=== PATIENT | female | born 1955 | race Caucasian/White ===

== ENCOUNTER 2018-08-25 12:04 | Emergency (ER) | payer OTHER ==
[~2018-08-25] VITALS: Ht 165.1 cm; Wt 79.6 kg
[~2018-08-25 12:04] MED LIST: 24HOUR ALLERGY10 MG; BUSPIRONE HCL10 MG PO; COZAAR 25 MG TA25 M1 PO; CRESTOR40 MG PO; CYMBALTA30 MG PO; DICLOFENAC SODI25 MG PO; ISOSORBIDE MONO30 M1 PO; LANTUS100 UNIT/M SUBQ; LATUDA120 MG PO; LOPRESSOR25 PO; NASACORT10.8 ML NASAL; NEURONTIN 400400 M1 PO; NITROGLYCERIN0.4 MG SUBLING; NYAMYC15 GM TOP; OMEGA-31000 M1 PO; OXYBUTYNIN 5 MG5 M2 PO; OXYBUTYNIN ER 55 M1 PO; PLAVIX 75 MG TA75 M1 PO; TOPAMAX 100 MG100 MG PO; TRAZODONE HCL100 MG PO; TYLENOL325 MG PO
[2018-08-25 12:29] LABS: ABSOLUTE NEUTROPHILS 3.9 thou/uL (1.4-8.2); BASOPHILS 0.6 % (0.0-2.0); HEMATOCRIT 35.3 % (37.0-47.0); HEMOGLOBIN 12.1 gm/dL (12.0-15.0); LYMPHOCYTES 49.9 % (24.0-44.0); MCH 30.6 pg (26.0-34.0); MCHC 34.3 g/dL (28.0-37.0); MCV 89.2 fL (80.0-100.0); MONOCYTES 4.2 % (1.0-8.0); PLATELET COUNT 217 thou/uL (150-400); POLYS 44.3 % (36.0-66.0); RBC 3.96 mil/uL (4.20-5.00); RDW 14.1 % (10.5-14.5); WBC 8.8 thou/uL (4.0-11.0)
[2018-08-25 12:38] LABS: ANION GAP 10 mmol/L (7-16); BUN 17 mg/dL (7-18); CALCIUM 8.9 mg/dL (8.5-10.1); CHLORIDE 107 mmol/L (98-107); CO2 24 mmol/L (21-32); CREATININE 0.8 mg/dL (0.6-1.0); GLUCOSE 151 mg/dL (74-106); POTASSIUM 3.7 mmol/L (3.5-5.1); SODIUM 141 mmol/L (136-145)
[2018-08-25 12:47] LABS: TROPONIN-I <0.06 ng/mL (<0.06)
[2018-08-25 14:56] VITALS: BP 124/68
--- NOTE | 2018-08-26 11:58 | EKG ---
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1955 Requested By: Matthew Arellano Order Number: [id number] MD: Wade Hendrickson Measurements Intervals [place] Rate: 77 P: 20 SC: 167 QRS: -7 QRSD: 134 T: 101 QT: 429 QTc: 486 Interpretive Statements Sinus rhythm Atrial premature complex Left bundle branch block Compared to ECG 04/16/2018 11:15:00 Atrial premature complex(es) now present Electronically Signed On 08-26-2018 11:58:22 COAT HANGER SHAPER MACHINE OPERATOR by Wade Hendrickson [email or web address] <ELECTRONICALLY SIGNED> By: Wade Hendrickson MD, [facility] 08/26/18 1158 1203 1203 Wade Hendrickson MD, FAC /EPI
--- NOTE | 2018-08-26 12:00 | EKG ---
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 Paid: salo : 1955 Requested By: Matthew Arellano Order Number: [id number] MD: Wade Hendrickson Measurements Intervals [place] Rate: 69 P: 16 GA: 185 QRS: -12 QRSD: 143 T: 120 QT: 456 QTc: 489 Interpretive Statements Sinus rhythm Left bundle branch block Compared to ECG 04/16/2018 11:15:00 No significant changes Electronically Signed On 08-26-2018 12:00:00 SECURITY INTELLIGENCE ANALYST by Wade Hendrickson [email or web address] <ELECTRONICALLY SIGNED> By: Wade Hendrickson MD, [facility] 08/26/18 1200 1419 18 Wade Hendrickson MD, FACC /EPI
== END 2018-08-25 14:56 ==
LOC: ER 12:04
PROVIDERS: Emergency Medicine
DX: R07.89 Other chest pain (principal); I25.10 Atherosclerotic heart disease of native coronary artery without angina pectoris; I25.2 Old myocardial infarction; Z88.1 Allergy status to other antibiotic agents; Z88.6 Allergy status to analgesic agent; Z88.8 Allergy status to other drugs, medicaments and biological substances

== ENCOUNTER 2018-10-27 19:46 | Emergency (ER) | payer OTHER ==
[~2018-10-27] VITALS: Ht 165.1 cm; Wt 73.0 kg
[2018-10-27 21:21] LABS: ABSOLUTE NEUTROPHILS 3.7 thou/uL (1.4-8.2); BASOPHILS 0.5 % (0.0-2.0); EOSINOPHILS 5.3 % (0.0-3.0); HEMATOCRIT 33.5 % (37.0-47.0); HEMOGLOBIN 11.3 gm/dL (12.0-15.0); LYMPHOCYTES 46.2 % (24.0-44.0); MCH 31.2 pg (26.0-34.0); MCHC 33.6 g/dL (28.0-37.0); MCV 92.9 fL (80.0-100.0); MONOCYTES 5.9 % (1.0-8.0); PLATELET COUNT 247 thou/uL (150-400); POLYS 42.1 % (36.0-66.0); RBC 3.61 mil/uL (4.20-5.00); RDW 14.1 % (10.5-14.5); WBC 8.9 thou/uL (4.0-11.0)
[2018-10-27 21:28] LABS: ANION GAP 8 mmol/L (7-16); BUN 21 mg/dL (7-18); CALCIUM 9.5 mg/dL (8.5-10.1); CHLORIDE 107 mmol/L (98-107); CO2 24 mmol/L (21-32); GLUCOSE 164 mg/dL (74-106); POTASSIUM 3.8 mmol/L (3.5-5.1); SODIUM 139 mmol/L (136-145)
[2018-10-27 21:37] LABS: TROPONIN-I <0.06 ng/mL (<0.06)
[2018-10-27 22:12] LABS: URINE BILIRUBIN NEGATIVE (Negative); URINE BLOOD NEGATIVE (Negative); URINE CLARITY CLEAR; URINE COLOR YELLOW; URINE GLUCOSE-RANDOM* NEGATIVE (Negative); URINE KETONES TRACE (Negative); URINE LEUKOCYTES-REFLEX NEGATIVE (Negative); URINE NITRITE-REFLEX NEGATIVE (Negative); URINE PROTEIN (DIPSTICK) NEGATIVE (Negative); URINE SPECIFIC GRAVITY 1.025 (1.005-1.035); URINE UROBILINOGEN 0.2 E.U./dl (0.2-1.0)
[2018-10-28 00:11] VITALS: BP 128/64
--- NOTE | 2018-10-28 10:52 | EKG ---
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 : 1955 Requested By: Evelyn Coy Order Number: [id number] MD: Aroldo Hudson Measurements Intervals [place] Rate: 71 P: 29 [place]: 173 QRS: 6 QRSD: 145 T: 80 QT: 440 QTc: 479 Interpretive Statements Sinus rhythm Left bundle branch block Compared to ECG 08/25/2018 14:19:06 No significant changes Electronically Signed On 10-28-2018 10:51:53 CDT by Aroldo Hudson [email or web address] ��������������������������������������������� <ELECTRONICALLY SIGNED> ���������������������������������������� By: Aroldo Hudson MD ��������������������������������������������� 10/28/18 1051 203 32 Aroldo Hudson MD /JEFF
== END 2018-10-28 00:11 | disposition home or self-care (01) ==
LOC: ER 19:46
PROVIDERS: Emergency Medicine
DX: G89.29 Other chronic pain (principal); R07.89 Other chest pain; I25.10 Atherosclerotic heart disease of native coronary artery without angina pectoris; F31.9 Bipolar disorder, unspecified; E11.9 Type 2 diabetes mellitus without complications; M19.90 Unspecified osteoarthritis, unspecified site; E78.5 Hyperlipidemia, unspecified; I10 Essential (primary) hypertension; Z88.1 Allergy status to other antibiotic agents; Z88.5 Allergy status to narcotic agent; Z88.8 Allergy status to other drugs, medicaments and biological substances; Z91.010 Allergy to peanuts; Z88.6 Allergy status to analgesic agent; W18.39XA Other fall on same level, initial encounter; Y93.89 Activity, other specified; Y92.89 Other specified places as the place of occurrence of the external cause; Y99.8 Other external cause status

== ENCOUNTER 2020-01-17 23:47 | Emergency (ER) | payer OTHER ==
[~2020-01-17] VITALS: Ht 165.1 cm; Wt 91.6 kg
[2020-01-18 08:00] VITALS: BP 100/51
== END 2020-01-18 08:00 ==
LOC: ER 23:47
DX: S82.142A Displaced bicondylar fracture of left tibia, initial encounter for closed fracture (principal); S22.39XA Fracture of one rib, unspecified side, initial encounter for closed fracture; S80.12XA Contusion of left lower leg, initial encounter; S00.12XA Contusion of left eyelid and periocular area, initial encounter; N20.0 Calculus of kidney; R59.0 Localized enlarged lymph nodes; E27.8 Other specified disorders of adrenal gland; M25.572 Pain in left ankle and joints of left foot; M54.6 Pain in thoracic spine; I25.10 Atherosclerotic heart disease of native coronary artery without angina pectoris; F31.9 Bipolar disorder, unspecified; E11.9 Type 2 diabetes mellitus without complications; M19.90 Unspecified osteoarthritis, unspecified site; E78.5 Hyperlipidemia, unspecified; I10 Essential (primary) hypertension; Z86.73 Personal history of transient ischemic attack (TIA), and cerebral infarction without residual deficits; Z79.899 Other long term (current) drug therapy; Z79.4 Long term (current) use of insulin; Z88.8 Allergy status to other drugs, medicaments and biological substances; Z88.1 Allergy status to other antibiotic agents; Z88.5 Allergy status to narcotic agent; Z91.010 Allergy to peanuts; Z88.2 Allergy status to sulfonamides; W01.0XXA Fall on same level from slipping, tripping and stumbling without subsequent striking against object, initial encounter; Y93.E8 Activity, other personal hygiene; Y92.89 Other specified places as the place of occurrence of the external cause; Y99.8 Other external cause status

== ENCOUNTER 2021-07-07 14:34 | Inpatient (IN) | payer OTHER ==
[~2021-07-07] VITALS: Ht 162.6 cm; Wt 84.1 kg
[2021-07-07 14:34] VITALS: BP 139/70
[2021-07-07 15:07] LABS: ABSOLUTE NEUTROPHILS 7.4 thou/uL (1.4-8.2); BASOPHILS 0.6 % (0.0-2.0); EOSINOPHILS 0.2 % (0.0-3.0); HEMATOCRIT 41.2 % (37.0-47.0); HEMOGLOBIN 13.1 gm/dL (12.0-15.0); LYMPHOCYTES 25.3 % (24.0-44.0); MCH 29.7 pg (26.0-34.0); MCHC 31.9 g/dL (28.0-37.0); MCV 93.1 fL (80.0-100.0); MONOCYTES 7.1 % (1.0-8.0); PLATELET COUNT 265 thou/uL (150-400); POLYS 66.8 % (36.0-66.0); RBC 4.43 mil/uL (4.20-5.00); WBC 11.1 thou/uL (4.0-11.0)
[2021-07-07 15:12] LABS: BE(vivo) -4.3 mmol/L (-2 to +3); HCO3 19.2 mmol/L (22.0-26.0); PCO2 30.8 mmHg (35.0-45.0); PO2 71.8 mmHg (80.0-100.0); pH 7.412 (7.360-7.450); sO2 94.8 % (92.0-98.0)
[2021-07-07 15:22] LABS: CALCIUM 8.8 mg/dL (8.5-10.1); CREATININE 1.2 mg/dL (0.6-1.0); POTASSIUM 4.1 mmol/L (3.5-5.1)
[2021-07-07 15:31] LABS: URINE BILIRUBIN NEGATIVE (Negative); URINE BLOOD NEGATIVE (Negative); URINE CLARITY CLEAR; URINE COLOR YELLOW; URINE GLUCOSE-RANDOM* 2+ (Negative); URINE KETONES TRACE (Negative); URINE LEUKOCYTES-REFLEX NEGATIVE (Negative); URINE NITRITE-REFLEX NEGATIVE (Negative); URINE PROTEIN (DIPSTICK) 1+ (Negative); URINE SPECIFIC GRAVITY >= 1.030 (1.005-1.035); URINE UROBILINOGEN 0.2 E.U./dl (0.2-1.0)
[2021-07-07 15:32] LABS: TOTAL BILIRUBIN 0.4 mg/dL (0.2-1.0); TOTAL PROTEIN 7.8 g/dL (6.4-8.2)
--- NOTE | 2021-07-07 15:43 | EKG ---
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: mparwayne : 1955 Requested By: Dawood Mares Order Number: [id number] MD: Contreras Lombardo Measurements Intervals [place] Rate: 102 P: 26 [place]: 145 QRS: -25 QRSD: 128 T: 132 QT: 382 QTc: 498 Interpretive Statements Sinus tachycardia Left bundle branch block Compared to ECG 10/27/2018 20:33:34 Sinus rhythm no longer present Electronically Signed On 07-07-2021 15:42:54 FILM RECORDIST by Contreras Lombardo [email or web address] <ELECTRONICALLY SIGNED> By: Contreras Lombardo MD, [facility] 07/07/21 1542 1452 1452 Contreras Lombardo MD, FACC /EPI
[2021-07-07 15:50] LABS: BACTERIA-REFLEX 1-9 Few /HPF (None Seen); CASTS None Seen /LPF (None Seen); CRYSTALS None Seen /LPF (None Seen); MUCUS >6 Heavy strn/LPF (None Seen); SQUAMOUS 0-3 Few /LPF (0-3); URINE RBC None Seen /HPF (NONE SEEN); URINE WBC-REFLEX 0-5 Rare /HPF (0-5)
[2021-07-07] MEDS ORDERED: BUSPIRONE HCL10 MG PO (17:46)
[2021-07-07] MEDS ORDERED: COLESTIPOL HCL1 G1 PO (17:47)
[2021-07-07] MEDS ORDERED: LATUDA80 MG PO (17:49)
[2021-07-07] MEDS ORDERED: ATIVAN1 M1 PO (17:50)
--- NOTE | 2021-07-07 19:16 | NUR ---
REPORT GIVEN TO ADI JARA AT THIS TIME
[2021-07-08 05:52] VITALS: BP 109/56
[2021-07-08 06:05] VITALS: BP 134/74
[2021-07-08 06:30] VITALS: BP 145/78
--- NOTE | 2021-07-08 07:11 | NUR ---
PT ADMITTED TO 3W FROM ED, ARRIVED TO ROOM 355 AT APPROXIMATELY 0625 ACCOMPANIED BY ED STAFF. VS STABLE ON ADMISSION, ON 2L O2. PALOMINO IN PLACE TO DD WITH CLEAR YELLOW URINE PRESENT. PT WITH EXTENSIVE NOTED ALLERGIES. PT WOULD NOT ANSWER ANY QUESTIONS FOR THIS RN, YES/NO QUESTIONS OR OTHERWISE. SHE DID NOT NOD OR SHAKE HER HEAD OR GIVE ANY INDICATION THAT SHE UNDERSTOOD. SINUS RHYTHM WITH BBB ON PHYSICIAN IN PRIVATE PRACTICE. REPORT GIVEN TO ONCOMING NURSE.
[2021-07-08 08:50] LABS: HEMATOCRIT 40.1 % (37.0-47.0); HEMOGLOBIN 12.7 gm/dL (12.0-15.0); MCH 29.4 pg (26.0-34.0); MCHC 31.7 g/dL (28.0-37.0); MCV 92.7 fL (80.0-100.0); RBC 4.33 mil/uL (4.20-5.00); RDW 13.9 % (10.5-14.5); WBC 15.4 thou/uL (4.0-11.0)
[2021-07-08 09:11] LABS: ALBUMIN 2.8 g/dL (3.4-5.0); ANION GAP 15 mmol/L (7-16); BUN 17 mg/dL (7-18); CALCIUM 8.5 mg/dL (8.5-10.1); CHLORIDE 111 mmol/L (98-107); CO2 20 mmol/L (21-32); CREATININE 1.1 mg/dL (0.6-1.0); DIRECT BILIRUBIN < 0.1 mg/dL (<0.1-0.2); GLUCOSE 351 mg/dL (74-106); POTASSIUM 3.6 mmol/L (3.5-5.1); SGOT 32 U/L (15-37); SGPT 29 U/L (30-65); SODIUM 146 mmol/L (136-145); TOTAL BILIRUBIN 0.2 mg/dL (0.2-1.0); TOTAL PROTEIN 7.6 g/dL (6.4-8.2)
--- NOTE | 2021-07-08 11:52 | NUR ---
[address] PEDRAZA ABOUT PT BLOOD GLUCOSE LEVEL, PT HAS HISTORY OF DM AND THERE IS NO ORDER FOR INSULIN IN YET.PAGE HIM AGAIN AT 0830, STATED HE WILL PUT ORDERS IN. NO ORDERS IN YET. 1100 DR[address] PEDRAZA ROUNDING REMINDED HIM PT RESTARTING PT HOME MEDS 9PSYCH) SINCE PT IS TEARFUL, RESTLESS AND ANXIOUS WELL HIGH BLOOD GLUOSE. STATED HE WILL PLACE ORDERS IN SOON. 0047 NO ORDERS IN YET
--- NOTE | 2021-07-08 12:11 | NUR ---
INITIAL ASSESSMENT: Received consult. MAEGAN reviewed chart and spoke with nursing and attending physician. Pt was admitted from [facility] due to COVID pneumonia. Pt placed in Enhanced Isolation. Pt had tested positive for COVID at the nursing facility. Pt is afebrile and on 2L of O2. Pt is on IV abx, IV steroids and Remdesivir. Pt with hx of bipolar and is a [facility] through [facility] Public Compression Molding Machine Setter's office. MAEGAN contacted Pawan Huang with the PA office to provide update. Pawan to send guardianship ppwk to MAEGAN to place on pt's chart. Per Pawan, pt has been fully vaccinated for COVID and was scheduled to have her booster shot tomorrow at the facility. Plan is for pt to return to [facility] when medically stable. MAEGAN faxed clinical info to [facility] for review. Left voice message for TORIN Sharp, to provide update. MAEGAN informed pt's nurse that all consents must be provided by the PA office. Contact info updated. MAEGAN is following to assist as needed with discharge planning.
[2021-07-08 15:42] VITALS: BP 132/75
--- NOTE | 2021-07-08 15:59 | NUR ---
CARE ASSUMED THIS AM, ADMISSION AND ASSESSMENT NCOMPLETED WITH CHART COPY FROM [facility]. PT IS SLOW TO RESPONSE, FOLLOW COMMANDS. PT DO NOT RESPOND WHEN SPOKEN, PER PT FACILITY, ITS COMMON WITH WITH NEW PEOPLE. PT IS INCONTINENT AND HAS BEEN HAVING DIARRHEA. PALOMINO CATHETER IN PLACE, PATENT AND SECURED. SKIN INTACT. FALL AND ENHANCED PRECAUTIONS IN PLACE. DENIES ANY NEEDS WILL CONTINUE TO MONITOR
[2021-07-08 20:49] VITALS: BP 174/87
[2021-07-08 23:57] VITALS: BP 138/63
[2021-07-09 05:02] VITALS: BP 114/64
[2021-07-09 05:38] LABS: ABSOLUTE NEUTROPHILS 9.4 thou/uL (1.4-8.2); BASOPHILS 0.2 % (0.0-2.0); EOSINOPHILS 0.1 % (0.0-3.0); HEMATOCRIT 33.6 % (37.0-47.0); HEMOGLOBIN 10.8 gm/dL (12.0-15.0); LYMPHOCYTES 25.3 % (24.0-44.0); MCH 29.6 pg (26.0-34.0); MCHC 32.2 g/dL (28.0-37.0); MCV 91.9 fL (80.0-100.0); MONOCYTES 4.4 % (1.0-8.0); PLATELET COUNT 276 thou/uL (150-400); RBC 3.65 mil/uL (4.20-5.00); RDW 13.5 % (10.5-14.5); WBC 13.4 thou/uL (4.0-11.0)
[2021-07-09 06:12] LABS: ALBUMIN 2.2 g/dL (3.4-5.0); ANION GAP 15 mmol/L (7-16); BUN 17 mg/dL (7-18); CALCIUM 8.3 mg/dL (8.5-10.1); CHLORIDE 111 mmol/L (98-107); CO2 19 mmol/L (21-32); CREATININE 0.9 mg/dL (0.6-1.0); DIRECT BILIRUBIN < 0.1 mg/dL (<0.1-0.2); GLUCOSE 274 mg/dL (74-106); PHOSPHORUS 2.3 mg/dL (2.5-4.9); POTASSIUM 3.2 mmol/L (3.5-5.1); SGOT 20 U/L (15-37); SGPT 16 U/L (30-65); SODIUM 145 mmol/L (136-145); TOTAL BILIRUBIN 0.3 mg/dL (0.2-1.0); TOTAL PROTEIN 6.3 g/dL (6.4-8.2)
--- NOTE | 2021-07-09 06:35 | NUR ---
Pt. awake , eyes open and follows command but non verbal at beginning of shift. O2 at 3L/NC then titrated down to 2L since O2 sat in the upper 90's. Cont. on enhanced precaution. Max temp of 102.5 ( oral) around MN. PIGMENT MIXER notified with no new orders. BC and UA had already been done. Tylenol given and temp down to 98.5 after tylenol. She has been repositioned for comfort. She slept fair during the night. This am when she woke up , she is verbalizing and smiling. BP is also a lot better. SCD's in place and bed alarm on for safety.
[2021-07-09 07:55] VITALS: BP 103/63
--- NOTE | 2021-07-09 07:56 | HC ---
[facility] [place] [address] CONSULTATION Name: SALEEM MONTILLA Room #: 355-P ADM IN M.R.#: [id number] Admission: 07/07/21 Attend Phys: Satish Israel MD Discharge: Date of : 57 Report #: [id number] THIS REPORT FOR: cc: Prashant Martinez MD, Dennis R MD Barry,Farhad Alba MD ~ DATE OF SERVICE: 07/08/2021 INFECTIOUS DISEASE CONSULTATION ATTENDING PHYSICIAN: Dr. Israel. REASON FOR EVALUATION: COVID-19 infection, complicated by pneumonitis and respiratory failure. HISTORY OF PRESENT ILLNESS: Chart reviewed. The patient examined. 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 Her eyes are open, although she just stares, apparently not aware of her surroundings. She was evaluated in the emergency room. She did carry a diagnosis with a positive COVID test. Initial ABG showed a pO2 of 71 on room air. Again, confirmed coronavirus testing, mild interstitial infiltrates seen on chest x-ray. Glucose elevated at 438. Lactic acid of 2.9, repeat was down to 1.3. Urinalysis, 0-5 white cells. Blood cultures collected at time of admission are sterile thus far. She did have a low-grade temperature elevation to 100.2 with commensurate tachycardia, respiratory rates in the 30s-40s initially, they have improved. She is currently maintained on supplemental oxygen 99% saturation. She was empirically started on a therapy with levofloxacin, remdesivir, corticosteroids, initially given ceftriaxone and azithromycin. ALLERGIES: EXTENSIVE INCLUDING MYLANTA, PEPTO-BISMOL, PROCHLORPERAZINE, CODEINE, CLONAZEPAM, PAROXETINE, PROMETHAZINE, AMITRIPTYLINE, SERTRALINE, LISPRO INSULIN, GABITRIL, ARIPIPRAZOLE. CURRENT MEDICATIONS: Include clopidogrel, isosorbide mononitrate, duloxetine, metoprolol, topiramate, insulin glargine, buspirone, gabapentin, lorazepam, lurasidone, famotidine, cholecalciferol, zinc, multivitamin, dexamethasone, levothyroxine, ascorbic acid, remdesivir. 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 [address] [address] CONSULTATION Name: SALEEM MONTILLA Room #: 355-P [facility] IN M.R.#: [id number] Admission: 07/07/21 Attend Phys: Satish Israel MD Discharge: Date of : 57 Report #: [id number] SOCIAL HISTORY: Nonsmoker. Past ethanol, no illicit drug use. FAMILY HISTORY: Noncontributory. REVIEW OF SYSTEMS: Otherwise unremarkable, not obtainable. PHYSICAL EXAMINATION: GENERAL: She essentially is lying supine. Her eyes are open, although she is not making any eye contact. She is not responsive to any verbal or even mild tactile stimuli, appears chronically ill. VITAL SIGNS: Temperature 98.1, pulse 90, respirations 20, blood pressure 145/78. SKIN: Warm, dry, no rashes. HEENT: Normocephalic, nasal cannula in place. NECK: There is some decreased range of motion about the cervical spine, I do not know if this is purposeful on her part. LUNGS: Few scattered coarse breath sounds, diminished. HEART: Borderline tachycardic, regular, do not appreciate a murmur. ABDOMEN: Slightly distended, mildly firm. No apparent guarding. No peritoneal signs. GENITOURINARY AND RECTAL: Deferred. LABORATORY DATA: Electrolytes: Sodium 146, potassium 3.6, chloride 111, bicarbonate is 20, anion gap of 15, BUN and creatinine 17 and 1.1, glucose is still elevated at 351. LFTs unremarkable. Albumin of 2.8, total protein 7.6. Estimated GFR 50. CBC: White count of 15.4, H and H 12.7 and 40.1, platelets of 303. Most recent lactic acid 1.3. Urinalysis, 0-5 white cells. ASSESSMENT AND PLAN: COVID-19 infection, complicated by pneumonitis and respiratory failure. The patient is really unable to contribute in her care. We will continue empiric therapy, ____ responds Levaquin somewhat problematic perhaps this is difficult to ascertain if there be any changes in her overall neuropsychiatric situation I think at this point. Continue corticosteroids, they contributed to her marked hyperglycemia, leukocytosis ____ remdesivir. She remains quite tenuous at this point. Continue oxygen ____. <ELECTRONICALLY SIGNED> By: Farhad Chisholm MD 07/09/21 0756 1327 20 Farhad Chisholm MD /nt
[2021-07-09 11:42] VITALS: BP 95/57
--- NOTE | 2021-07-09 13:49 | NUR ---
MAEGAN reviewed chart and spoke with nursing and attending physician. Pt remains in Enhanced Isolation due to COVID. Pt has been febrile and is on 2L of O2. Pt is on IV meds and Remdesivir. No weekend discharge planned. MAEGAN spoke with TORIN Sharp at [facility] to provide an update. Per Aron, pt has been fully vaccinated for COVID. Pt has not received a COVID booster. MAEGAN updated Pawan Huang with the [facility] PA office. The PA office will need to provide consents for pt if needed. Plan is for pt to discharge back to [facility] when medically stable. MAEGAN is following to assist as needed with discharge planning. [facility] PA OFFICE-- After Hours: [phone]
[2021-07-09 15:36] VITALS: BP 111/63
--- NOTE | 2021-07-09 19:36 | NUR ---
RN ASSUMED PT'S CARE AT 0700-1900PM, PT IS UN-VERBAL , PT OPENS HER EYES BY VOICE, PT IS ON O2 1-2L/MIN/NC, PT IS CONTINUING IV ABX AND TREAT COVID MEDICATIONS, PT NEEDS TOTAL CARE , PT'S VS AND O2SAT ARE STABLE AT DAY SHIFT.
[2021-07-09 19:46] VITALS: BP 141/69
--- NOTE | 2021-07-10 03:26 | NUR ---
PT CONFUSED VSS AFEBRILE. UNLABORED ON 2LNC. SATS WNL. PT REPEATS STATEMENTS OR QUESTIONS CONSTANTLY WHILE AWAKE. SHE SLEPT FOR SEVERAL HOURS. BED ALARM ON FOR SAFETY. PROGRESSING SLOWLT TOWARDS D/CGOALS.
[2021-07-10 04:03] VITALS: BP 140/74
[2021-07-10 06:43] LABS: ANION GAP 11 mmol/L (7-16); BUN 16 mg/dL (7-18); CALCIUM 8.2 mg/dL (8.5-10.1); CHLORIDE 110 mmol/L (98-107); CO2 21 mmol/L (21-32); CREATININE 0.9 mg/dL (0.6-1.0); DIRECT BILIRUBIN < 0.1 mg/dL (<0.1-0.2); GLUCOSE 243 mg/dL (74-106); PHOSPHORUS 2.2 mg/dL (2.5-4.9); POTASSIUM 3.4 mmol/L (3.5-5.1); SGOT 20 U/L (15-37); SGPT 17 U/L (30-65); SODIUM 142 mmol/L (136-145); TOTAL BILIRUBIN 0.1 mg/dL (0.2-1.0); TOTAL PROTEIN 6.1 g/dL (6.4-8.2)
[2021-07-10 08:11] VITALS: BP 136/70
[2021-07-10 12:04] VITALS: BP 120/57
[2021-07-10 16:16] VITALS: BP 122/8
[2021-07-10 19:42] VITALS: BP 154/74
[2021-07-11 03:11] VITALS: BP 153/76
[2021-07-11 05:20] LABS: ALBUMIN 2.3 g/dL (3.4-5.0); ANION GAP 11 mmol/L (7-16); BUN 12 mg/dL (7-18); CHLORIDE 109 mmol/L (98-107); CO2 21 mmol/L (21-32); CREATININE 0.8 mg/dL (0.6-1.0); DIRECT BILIRUBIN < 0.1 mg/dL (<0.1-0.2); GLUCOSE 63 mg/dL (74-106); PHOSPHORUS 1.6 mg/dL (2.5-4.9); SGOT 21 U/L (15-37); SGPT 17 U/L (30-65); SODIUM 141 mmol/L (136-145); TOTAL BILIRUBIN 0.2 mg/dL (0.2-1.0); TOTAL PROTEIN 6.4 g/dL (6.4-8.2)
[2021-07-11 05:23] LABS: POTASSIUM 2.6 mmol/L (3.5-5.1)
--- NOTE | 2021-07-11 07:46 | NUR ---
Patient making slow progress towards outcome goals. Incontinent of bowels. Large urine output per sethi catheter. Confused, oriented to person only. Difficulty IV stick, left arm swollen from IV infiltration. Critical potassium reported and orders received. Enhanced isolation for COVID. Oxygenation optimal with 1L/NC.
[2021-07-11 08:00] VITALS: BP 145/84
[2021-07-11 11:43] VITALS: BP 141/90
[2021-07-11 16:22] VITALS: BP 136/82
[2021-07-11 19:16] VITALS: BP 114/57
--- NOTE | 2021-07-11 19:42 | NUR ---
RN TOOK CARE PT AT 0700-1900PM, PT IS CONFUSED , PT CAN FOLLOW SOME CONMMANDS,PT IS O2 1L/MIN/NC, PT'S VS AND O2SAT ARE STABLE AT DAY SHIFT, RN HAS CALLED HOSPITAL DR ABOUT PT IS IMPULSIVE AND SHE GETS UP BY HERSELF, PT REFUSED TO SIT IN CHAIR, PT MOST IS FALL ON THE FLOOR, PT 'S BED AND CHAIR ALARM ARE ON, RN HAS REPORTED TO NEXT SHIFT TO KEEP EYE ON PT.
--- NOTE | 2021-07-11 19:50 | NUR ---
PT HAS PO AND IV KCL MEDICATIONS FOR LOW POTASSIUM 2.6 TODAY, PT WILL HAVE LAB TO CHECK POTASSUIM TOMORROW.
[2021-07-12 04:01] LABS: HEMATOCRIT 33.5 % (37.0-47.0); HEMOGLOBIN 11.4 gm/dL (12.0-15.0); MCH 30.3 pg (26.0-34.0); MCHC 33.8 g/dL (28.0-37.0); MCV 89.6 fL (80.0-100.0); RBC 3.74 mil/uL (4.20-5.00); RDW 13.5 % (10.5-14.5); WBC 7.4 thou/uL (4.0-11.0)
[2021-07-12 04:19] VITALS: BP 107/69
[2021-07-12 04:27] LABS: ALBUMIN 2.3 g/dL (3.4-5.0); ANION GAP 10 mmol/L (7-16); BUN 13 mg/dL (7-18); CALCIUM 8.5 mg/dL (8.5-10.1); CHLORIDE 105 mmol/L (98-107); CO2 21 mmol/L (21-32); CREATININE 0.8 mg/dL (0.6-1.0); DIRECT BILIRUBIN < 0.1 mg/dL (<0.1-0.2); GLUCOSE 112 mg/dL (74-106); POTASSIUM 3.5 mmol/L (3.5-5.1); SGOT 15 U/L (15-37); SGPT 18 U/L (30-65); SODIUM 136 mmol/L (136-145); TOTAL BILIRUBIN 0.2 mg/dL (0.2-1.0); TOTAL PROTEIN 6.4 g/dL (6.4-8.2)
--- NOTE | 2021-07-12 07:22 | NUR ---
PT PROGRESSING SLOWLY TOWARDS D/C GOALS. VSS AFEBRILE SATS WNL ON 1LNC. PT CALM TONIGHT. SHE HAS NOT ATTEMPTED TO GET OOB TONIGHT. ENCOURAGED PO FLUIDS AND PUDDING AND APPLE SAUCE GIVEN TONIGHT. REMDESIVIR GIVEN ORDERED.
[2021-07-12 08:32] VITALS: BP 99/59
--- NOTE | 2021-07-12 17:16 | NUR ---
MAEGAN reviewed chart and spoke with nursing and attending physician. Pt remains in Enhanced Isolation due to COVID. Pt is afebrile and on room air. Pt is on IV steroids. Pt is progressing towards goals for discharge. Pt will return to [facility] when medically stable. MAEGAN updated Pawan Huang with the [facility] PA office. MAEGAN is following to assist as needed with discharge planning.
[2021-07-12 17:29] VITALS: BP 85/40
[2021-07-12 18:03] VITALS: BP 110/62
--- NOTE | 2021-07-12 19:53 | NUR ---
RN ASSUMED PT'S CARE AT 0700-1900PM, PT CAN ANSWER SOME QUESTIONS AND FOLLOW SOME COMMANDS, BUT PT IS CONFUSED AT TIME, PT IS ON O2 1L/MIN/NC, PT HAS WORKED WITH PT/OT TODAY, PT DOES NOT HAVE SOB WITH ACTIVITIES,
[2021-07-12 20:07] VITALS: BP 107/99
--- NOTE | 2021-07-12 23:23 | NUR ---
PT ALERT AND ORIENTD X2. CONFUSED AND FORGETFUL. REPEATS WORDS AND PHRASES. O2 1LNC . UNLABORED ON 1LNC. NO C/O PAIN. NOC/O SOA. SHE IS SLEEPING QUIETLY. SR OM MONITOR. BED DOWN. CALL LIGHT IN REACH. BED ALARM IS ON.
[2021-07-13 04:55] VITALS: BP 107/64
[2021-07-13 07:33] VITALS: BP 121/75
--- NOTE | 2021-07-13 08:02 | NUR ---
PT PROGRESSING SLOWLY TOWARDS D/C GOALS. SATS WNL. UNLABORED ON ILNC. NO C/O PAIN. NO S/S DISTRESS. PT HAS BEEN CALM TONIGHT AND AWAKENS EASILY. VSS. AFEBRILE NO S/S DITRESS TONIGHT.
--- NOTE | 2021-07-13 09:34 | NUR ---
Assess for length of stay. Admit from NH with covid pneumonia. Hx bipolar disorder, DM, HTN. Requires a modified diet consistency and ST following. Has ensure enlive ordered, however BG elevated so will change to glucerna shakes. Wt variable 187-196 lb. Intake 50-100%. Presents low nutrition risk with appropriate nutrition interventions in place
[2021-07-13 11:38] VITALS: BP 102/62
[2021-07-13 15:38] VITALS: BP 94/63
--- NOTE | 2021-07-13 16:05 | NUR ---
MAEGAN reviewed chart and spoke with nursing and attending physician. Pt remains in Enhanced Isolation due to COVID. Pt is afebrile and on 2L of O2. Pt is on IV steroids. Discharge back to [facility] is anticipated for tomorrow. MAEGAN updated Pawan Huang with the [facility] PA office. MAEGAN faxed clinical and therapy updates to [facility] for review. TORIN Sharp, is not at work today. Voice mailbox for the womens unit is full. MAEGAN provided with number for the patient clerical assistant ([phone]). Voice message left. Discharge ppwk to be faxed to [facility] and the PA office when available. MAEGAN is following to assist as needed with discharge planning.
[2021-07-13 19:17] VITALS: BP 87/56
--- NOTE | 2021-07-13 20:03 | NUR ---
ASSUMED PATIENT CARE AT 0700. ALERT. VERY PLEASANT. FLOW COMMAND.. PROGRESSING TOWARDS POC GOALS.
[2021-07-13 23:50] VITALS: BP 100/52
--- NOTE | 2021-07-14 03:30 | NUR ---
Patient progressing well towards outcome goals. Oxygenation optimal on room air. Vital signs and rhythm stable. High fall risks, fall precautions in place. Discharge plans for today. Cassidy catheter removed.
[2021-07-14 05:46] VITALS: BP 110/62
[2021-07-14 08:36] VITALS: BP 110/50
--- NOTE | 2021-07-14 08:49 | HC ---
[facility] [place] [address] CONSULTATION Name: SALEEM MONTILLA Room #: 355-P ADM IN M.R.#: [id number] Admission: 07/07/21 Attend Phys: Satish Israel MD Discharge: Date of : 57 Report #: [id number] THIS REPORT FOR: cc: Prashant Martinez MD, Dennis R MD Kerstein, Andrew H. DO ~ DATE OF SERVICE: 07/13/2021 INPATIENT PSYCHIATRIC CONSULTATION Primary team attending today is Emmanuel Lemon MD. Previous primary attending was Satish Israel MD. Consultants on this case besides myself; Farhad Chisholm MD of Infectious Disease, also pharmacy consultation. CONSULTING PSYCHIATRIST: Emmanuel Ceja DO REASON FOR CONSULTATION: Encephalopathy due to COVID-19, possible dementia. The patient is a very poor historian. Also, she is a george of the [facility] [employer]. Therefore, much past history cannot be reliably obtained. CHIEF COMPLAINT: Unspecified. HISTORY OF PRESENT ILLNESS: This is a 65-year-old female who was admitted on 07/07 through the Emergency Room. She resides at the [facility]. She is a george of the [facility] [employer]. The initial complaint was of altered mental status. The nursing facility stated that the patient answers when she wants to, but is confused. Her blood glucose ____ hospital was 442. She was hot to touch and tachypneic. She is COVID positive. PAST MEDICAL HISTORY: Includes coronary artery disease, history of an PR, diabetes mellitus type 2, osteoarthritis, hyperlipidemia, hypertension. REPORTED PAST PSYCHIATRIC HISTORY: Bipolar disorder PRIOR MEDICATIONS FROM HOME: Acetaminophen, buspirone, cetirizine, clopidogrel, diclofenac, duloxetine, gabapentin, isosorbide mononitrate, omega-3 fatty acid, insulin glargine, losartan, lorazepam, metoprolol, nitroglycerin, nystatin, oxybutynin, rosuvastatin, topiramate, trazodone, triamcinolone acetonide which is Nasacort intranasal. ALLERGIES: Quite numerous, ALUMINUM HYDROXIDE, AMITRIPTYLINE, ARIPIPRAZOLE, BACITRACIN, CLONAZEPAM, CODEINE, DIPHENHYDRAMINE, INSULIN LISPRO, KETOROLAC, MAGNESIUM, MAGNESIUM HYDROXIDE, NEOMYCIN, PAROXETINE, POLYMYXIN B, PROCHLORPERAZINE, PROMETHAZINE, SERTRALINE, SIMETHICONE, TIAGABINE, [facility] [address] [place] [address] CONSULTATION Name: SALEEM MONTILLA Room #: 355-P [facility]#: [id number] Admission: 07/07/21 Attend Phys: Satish Israel MD Discharge: Date of : 57 Report #: [id number] TROMETHAMINE, CALCIUM CARBONATE AND BISMUTH SUBSALICYLATE. SOCIAL HISTORY: No documented history of smoking. Past alcohol use. No recreational drug use. Like the ER, I was unable to obtain review of systems. Apparently, the day before hospital presentation, her COVID-19 test came back positive. I got a slightly different list of medical problems from Dr. Israel's H and P includes adrenal nodule, cervical lymphadenopathy, fall from ground, fracture of left tibial plateau, lymphadenopathy of the right and left cervical region, rib fracture, right nephrolithiasis, history of sepsis. Further, the patient has been consulted on by Dr. Farhad Chisholm of Infectious Disease Service and he diagnosed the patient with COVID-19 infection, complicated by pneumonitis and respiratory failure. In reviewing Dr. Chisholm's note, she says that it is difficult to ascertain if there are any changes in her overall neuropsychiatric situation I think at this point, so he was unsure of the degree of baseline mentation and behavior as am I. LABORATORY DATA: Most recent laboratory work from 07/12, white count 7.4, H and H 11.4 and 33.5, platelet count 424. Blood gas last done 07/07 showed a pO2 of 71.8, pCO2 of 30.8, pH 7.412. Chemistries from 07/12: Sodium 136, potassium 3.5, chloride 105, bicarbonate 21, anion gap 10, BUN 13, creatinine 0.8, estimated GFR 72, calcium 8.5, phosphorus 3.0, magnesium 2.0, total bilirubin 0.2, direct bilirubin less than 0.1, AST 15, ALT 18, alkaline phosphatase 60, total protein 6.4, albumin 2.3. Beta hydroxybutyrate on 07/08 was 0.45, which was high. Urinalysis showed 1+ protein, trace ketones, few bacteria and 6 mucus positive glucose. COVID-19 serology was positive on 07/07. MRSA PCR on 07/09 was negative. Blood cultures x 2 have been negative from the , and . IMAGING: Most recent chest x-ray on 07/12 showed unchanged multifocal alveolar pulmonary infiltrates bilaterally, worse on the left. I reviewed the chest x-ray and and agree with radiologst description. MEDICATIONS CURRENTLY IN THE HOSPITAL: Lorazepam was reduced today from 1 mg t.i.d. to 0.5 t.i.d. I put her on a scheduled Haldol 0.5 mg t.i.d. IV push and I started her on Haldol 2 mg q. 6 hours p.r.n. IV push. Duloxetine I reduced to [facility] [address] [place] [address] CONSULTATION Name: SALEEM MONTILLA Room #: 355-P ADM IN M.R.#: [id number] Admission: 07/07/21 Attend Phys: Satish Israel MD Discharge: Date of : 57 Report #: [id number] 60 mg daily. Topiramate, she is getting as 100 mg b.i.d., unclear indication. Famotidine 10 mg oral b.i.d. Gabapentin is currently 400 mg p.o. t.i.d. that was actually reduced yesterday from 800 mg. Potassium chloride 20 mEq p.o. daily. Olanzapine was discontinued due to polypharmacy and Haldol was previously 1 mg t.i.d. IV push. She is on cefdinir 300 mg p.o. b.i.d., isosorbide mononitrate 30 mg p.o. daily, Plavix 75 mg p.o. daily, metoprolol tartrate 25 mg p.o. b.i.d., Lantus 14 units subcutaneous at bedtime, Humalog sliding scale. She is on Latuda 120 mg p.o. daily that should be given with breakfast or meal greater than 350 calories. Reminded her nurse of that today. Additional medications; zinc sulfate p.o., multivitamin p.o., lactobacillus. She is getting dexamethasone 6 mg daily IV push, cholecalciferol 2000 International Units p.o. daily, albuterol q. 6 hours and that is scheduled. Lovenox 30 mg subcutaneous b.i.d., vitamin C 1000 mg p.o. b.i.d., p.r.n. Zofran, p.r.n. Tylenol. PHYSICAL EXAMINATION: VITAL SIGNS: Today, temperature 36.3, pulse 98, respirations 18, BP 102/60, O2 sat 93%. She did have a nasal cannula intact. looks like 1 liter nasal cannula Her most recent weight is 85.078 kg and it says she was on a liter nasal cannula this morning. GENERAL: Ill-appearing female in bed on [address] [facility] COVID-19 isolation unit in [facility]. I saw the patient with Dr. Lemon. I was in PPE equipment. MENTAL STATUS EXAMINATION: This is a well-developed, somewhat ill-appearing female, apparently stated age. Attention impaired. Concentration impaired. She could not tell me the month, day, date, year or place. She did react to threat. Speech was not spontaneous, normal volume. Thought process: Nonlinear at this time. Thought content: She was focused on her breakfast, which she was given, was able to feed herself. She was interested in eating, cut off waffle with a spoon rather than a fork and the fork was clearly available. I will assist her for suicidality, homicidality, suspect there might be some visual hallucinations, no tactile hallucinations. Memory: Not formally tested. Insight limited. Judgment impaired. Fund of knowledge: Below average. FORMULATION: A 65-year-old female, admitted from nursing facility [facility] of [facility] [employer] for COVID-19 respiratory failure, encephalopathy. RECOMMENDATIONS: At this time, I think we need to continue in convincing both her medications and pill burden, the amount of chemicals being back acted on. So I think it is reasonable to reduce her lorazepam from 1 mg t.i.d. to 0.5 mg t.i.d., to switch her to 0.5 mg of Haldol scheduled and 2 mg q. 6 hours IV p.r.n. rather than having her on multiple antipsychotics as she had olanzapine [address] [address] CONSULTATION Name: SALEEM MONTILLA Room #: 355-P ADM IN ..#: [id number] Admission: 07/07/21 Attend Phys: Satish Israel MD Discharge: Date of : 57 Report #: [id number] ordered further. Also, I believe it is worth tapering down the duloxetine versus the serotonin, norepinephrine reuptake inhibitor and particularly the norepinephrine action would be a concern in someone recovering from COVID and so it could be traumatized, anxious. I am unsure of present role of topiramate in this patient, but I will defer to my internal medicine colleagues. The Neurontin was reduced yesterday to 400 mg t.i.d. We will leave that on this current dose for another day before reducing it further. Potassium chloride 20 mEq p.o. daily is fine from a psychiatric standpoint. There is some antibiotics going on, Latuda was a home med, we will continue that for now. Also, the dexamethasone is a deliriogenic medication, however, certainly if it is needed for her COVID-19 complications, it should be continued and tapered or discontinued when it is deemed safe to do so by the medical team. I will continue to follow this patient remainder of this week. I am covering for Dr. Richardson. Please page if there are questions sooner. Time spent on this case is at least 45 minutes, greater than 50% of time was spent in review of records and coordination of care. <ELECTRONICALLY SIGNED> By: Emmanuel Ceja, 07/14/21 0849 [id number] Emmanuel Ceja DO /nt
[2021-07-14 11:45] VITALS: BP 112/57
--- NOTE | 2021-07-14 14:55 | NUR ---
CASE DISCUSSED WITH CARE TEAM. PT LIKELY TO DC TOMORROW BACK TO [facility]. SKILLED ORDERS REQUESTED PT DOES HAVE SKILLED MEDICARE BENEFIT AVAILABLE. MESSAGES X 2 LEFT FOR ABDULLAHI GOLDEN. CHART COPY ORDERED. [facility]/LEGAL GUARDIAN NOTIFIED OF ANTICIPATED DISCHARGE TOMORROW.
[2021-07-14 16:35] VITALS: BP 110/60
--- NOTE | 2021-07-14 18:42 | NUR ---
PT ALERT AND ORIENTED X 1. ORIENTED TO SELF ONLY. PT PLAN IS TO DISCHARGE TOMORROW BACK TO [facility]. NO COMPLAINTS OF PAIN. PT UP TO BATHROOM X 3 TODAY. WILL CONTINUE TO MONITOR.
[2021-07-14 19:28] VITALS: BP 147/73
[2021-07-15 04:43] VITALS: BP 105/61
--- NOTE | 2021-07-15 06:36 | NUR ---
Patient has progressed towards outcome goals. Oxygenation optimal on room air. Gait steady up to bathroom. Discharge plans back to [facility] today.
[2021-07-15 07:10] VITALS: BP 98/59
[2021-07-15 11:15] VITALS: BP 117/76
[2021-07-15] MEDS ORDERED: CEFDINIR300 MG PO (11:35)
--- NOTE | 2021-07-15 13:01 | NUR ---
Multiple messages left for the DON at [facility] regarding the pt's dc this afternoon. CM tried to leave a message with the assistant administrator however the vm is full. Covid w/c van transport per [facility] arranged for 4:30 picker tender helper this afternoon. Chart copy and orders ready to be sent with the pt. DC order faxed to [facility] as well as the pt's legal guardian (Xavi ANN's office) with confirmation of dc transport. Nursing to call report. Pt has orders for skilled therapy as well and BPCI notice faxed. Unit staff updated.
[2021-07-15 15:38] VITALS: BP 110/74
--- NOTE | 2021-07-15 18:17 | NUR ---
DISCHARGE NOTE: PT TO RETURN TO [facility] WHERE PREVIOUSLY LIVED. PT GIVEN DISCHARGE PAPERWORK AND NEW SCRIPT. CALLED [facility] WHERE I ATTEMPTED TO GET REPORT, BUT NO CALL BACK. LINE DC'D AND SUTURE POLISHER TAKEN OFF. ALL BELONGINGS WITH PT.
== END 2021-07-15 17:03 | DRG 871 ==
LOC: ER 14:34 → 3W 17:11 → EROBS 17:11 → 3W 07-08 06:10
PROVIDERS: Emergency Medicine; ADMIT Internal Medicine; ATTEND Internal Medicine
PROC: XW033E5 Introduction of Remdesivir Anti-infective into Peripheral Vein, Percutaneous Approach, New Technology Group 5 (ICD-10-PCS; principal; 2021-07-07)
DX: A41.89 Other specified sepsis (principal); U07.1 COVID-19; J12.82 Pneumonia due to coronavirus disease 2019; J96.01 Acute respiratory failure with hypoxia; G92.8 Other toxic encephalopathy; J15.9 Unspecified bacterial pneumonia; I42.9 Cardiomyopathy, unspecified; I25.10 Atherosclerotic heart disease of native coronary artery without angina pectoris; F31.9 Bipolar disorder, unspecified; M19.90 Unspecified osteoarthritis, unspecified site; R32 Unspecified urinary incontinence; R53.81 Other malaise; R41.0 Disorientation, unspecified; M81.0 Age-related osteoporosis without current pathological fracture; F60.3 Borderline personality disorder; E78.5 Hyperlipidemia, unspecified; I10 Essential (primary) hypertension; E11.65 Type 2 diabetes mellitus with hyperglycemia; I25.2 Old myocardial infarction; Z79.899 Other long term (current) drug therapy; Z79.4 Long term (current) use of insulin; Z88.8 Allergy status to other drugs, medicaments and biological substances; Z88.6 Allergy status to analgesic agent; Z88.1 Allergy status to other antibiotic agents; Z88.3 Allergy status to other anti-infective agents; Z88.5 Allergy status to narcotic agent; Z91.010 Allergy to peanuts
CPT/HCPCS: 10879